=== PATIENT | male | born 1965 | race Caucasian/White ===

== ENCOUNTER 2016-07-08 22:19 | Emergency (ER) | payer OTHER ==
[~2016-07-08] VITALS: Ht 170.2 cm; Wt 72.6 kg
[2016-07-08] MEDS ORDERED: MIRT15TA PO (22:47)
[2016-07-08] MEDS ORDERED: OXYCODONE/APAP 5-325 MG TABLET PO ONE (23:15)
[2016-07-08] MEDS ORDERED: ONDANSETRON 4 MG/2 ML VIAL IV ONE (23:15)
[2016-07-08] MEDS ORDERED: IV NORMAL SALINE 1000 ML BAG IV ONE (23:15)
[2016-07-08 23:23] LABS: BASOPHILS # (AUTO) 0.3 K/uL (0.0-8.0); BASOPHILS % (AUTO) 2.7 % (0.0-2.0); EOSINOPHILS # (AUTO) 0.1 K/uL (0.0-0.7); EOSINOPHILS % (AUTO) 0.6 % (0.0-7.0); HEMOGLOBIN 13.9 g/dL (12.5-16.3); LYMPHOCYTES # (AUTO) 1.9 K/uL (20.0-40.0); LYMPHOCYTES % (AUTO) 20.1 % (20.5-51.5); MEAN CORPUSCULAR HEMOGLOBIN 31.1 uug (23.8-33.4); MEAN CORPUSCULAR HGB CONC 35 g/dL (32.5-36.3); MEAN CORPUSCULAR VOLUME 89.4 fL (73.0-96.2); MONOCYTES # (AUTO) 0.6 K/uL (2.0-10.0); MONOCYTES % (AUTO) 6.4 % (0.0-11.0); NEUTROPHILS # (AUTO) 6.7 K/uL (1.8-8.9); NEUTROPHILS % (AUTO) 70.2 % (38.5-71.5); PLATELET COUNT (AUTO) 160 K/uL (152-348); RED BLOOD CELL COUNT(AUTO) 4.47 MIL/uL (4.06-5.63); RED CELL DISTRIBUTION WIDTH 12.2 % (12.1-16.2); WHITE BLOOD COUNT (AUTO) 9.6 K/uL (3.6-10.2)
[2016-07-08] MEDS ORDERED: ONDANSETRON 4 MG/2 ML VIAL ONE (23:27)
[2016-07-08] MEDS ORDERED: OXYCODONE/APAP 5-325 MG TABLET ONE (23:27)
[2016-07-08 23:44] LABS: ALBUMIN 3.6 g/dL (3.4-5.0); BILIRUBIN,DIRECT 0.1 mg/dL (0.0-0.2); BILIRUBIN,TOTAL 0.3 mg/dL (0.2-1.0); CALCIUM 8.8 mg/dL (8.5-10.1); CREATININE 0.9 mg/dL (0.6-1.3); TOTAL PROTEIN, SERUM 6.8 g/dL (6.4-8.2)
--- NOTE | 2016-07-09 00:34 | NUR ---
Patient is resting comfortably in bed with eyes closed
[2016-07-09] MEDS ORDERED: OXYCODONE/APAP 5-325 MG TABLET PO ONE (00:45)
[2016-07-09] MEDS ORDERED: OXYCODONE/APAP 5-325 MG TABLET ONE (00:52)
--- NOTE | 2016-07-09 01:07 | NUR ---
Patient requested staff to remove IV stating "I know the CT will be negative." IV removed. Catheter intact and site benign. Pressure and 4x4 gauze applied to site. No bleeding noted.
--- NOTE | 2016-07-09 01:13 | NUR ---
Patient discharged to home in stable conditon. Written and verbal after care instructions given. Patient verbalizes understanding of instructions.
== END 2016-07-09 01:14 | disposition home or self-care (01) ==
LOC: ER 22:22
DX: G89.29 Other chronic pain (principal); R10.9 Unspecified abdominal pain; R51 Headache; F17.200 Nicotine dependence, unspecified, uncomplicated; Z88.1 Allergy status to other antibiotic agents; Z88.2 Allergy status to sulfonamides; Z88.6 Allergy status to analgesic agent; Z88.8 Allergy status to other drugs, medicaments and biological substances; D61.9 Aplastic anemia, unspecified
CPT/HCPCS: 36415; 83690; 85025; A4663; J2405; J7030